=== PATIENT | female | born 1955 | race Caucasian/White ===

== ENCOUNTER → 2016-10-06 | Outpatient (CLI) | payer BC | LOC: BMCIMAGING 10:25 | PROVIDERS: ATTEND Orthopaedic Surgery | DX: M25.551 Pain in right hip (principal); M25.512 Pain in left shoulder ==

== ENCOUNTER → 2016-11-10 | Outpatient (CLI) | payer BC | LOC: BMCIMAGING 08:35 | PROVIDERS: ATTEND Orthopaedic Surgery | DX: M25.551 Pain in right hip (principal) ==

== ENCOUNTER → 2017-01-18 | Outpatient (CLI) | payer BC | LOC: FIMAGING 16:08 | PROVIDERS: ATTEND Orthopaedic Surgery | DX: Z01.818 Encounter for other preprocedural examination (principal); M16.11 Unilateral primary osteoarthritis, right hip; M25.451 Effusion, right hip; M51.36 Other intervertebral disc degeneration, lumbar region; M47.816 Spondylosis without myelopathy or radiculopathy, lumbar region; M76.21 Iliac crest spur, right hip ==

== ENCOUNTER 2017-01-23 09:24 | Inpatient (IN) | payer BC ==
--- NOTE | 2017-01-23 06:42 | PDHPUP ---
History & Physical Update H&P update statement: This history and physical update is based on an assessment of the patient which was completed after admission or registration (within 24 hours), but prior to the surgery/procedure.
--- NOTE | 2017-01-23 06:42 | PDIAF ---
- Diagnosis Diagnosis: right hip djd Code Status: Full Code - Medication Management Discharge Medications: Medications to Continue on Transfer Calcium Carb W/Vit D [Calcium Carb W/Vit D 500/200 (*)] 0.5 tab PO DAILY [Last Taken Unknown] Estradiol/Testosterone Pellets 0 mg IPL Q90D 12/15/16 [Last Taken Unknown] Herbals/Supplements -Info Only 1 ea PO DAILY 12/15/16 [Last Taken Unknown] Multivitamins [Multivitamin (*)] 1 tab PO DAILY 12/15/16 [Last Taken Unknown] Naproxen Sodium [Aleve 220 MG (*)] 220 mg PO DAILY PRN 12/15/16 [Last Taken Unknown] Nature Thyroid 48.75 mg PO DAILY 12/15/16 [Last Taken Unknown] Progesterone, Micronized [Progesterone] 100 mg PO DAILY 12/15/16 [Last Taken Unknown] Spironolactone [Aldactone 50 MG (RX)] 50 mg PO DAILY 12/15/16 [Last Taken Unknown] Discharge Medications: Refer to the Discharge Home Medication list for PRN reason. - Orders Services needed: Physical Therapy Diet Recommendation: no restrictions on diet Diet Texture: Regular Texture Diet Activity/Weight Bearing Restrictions: daily dressing changes. no soaking. may shower without bandage. wbat. anterior hip precautions. f/u at two weeks. seek attn for increasing pain, leg pain, drainage, s/s infection - Follow Up Care Current Providers and Referrals: Doctor Not,On Staff, MD [Primary Care Provider] -
[~2017-01-23 09:24] MED LIST: NS IV ONE; ROPIVACAINE 0.2% 80 MG, EPINEPHrine 0.2 MG, KETOROLAC TROMETHAMINE 30 MG, morphINE 10 M... IU ONE; TRANEXAMIC ACID IV ONE
[2017-01-23] MEDS ORDERED: ACETAMINOPHEN 325 MG TAB PO ONE (09:41)
[2017-01-23] MEDS ORDERED: ceFAZolin 2 GM/DEXTROSE 100 ML IV ONE (09:41)
[2017-01-23] MEDS ORDERED: FAMOTIDINE 20 MG TAB PO ONE (09:41)
[2017-01-23] MEDS ORDERED: LIDOCAINE 1% 2 ML INJ ID PRN (09:55)
[2017-01-23] MEDS ORDERED: LR 1,000 ML IV ONE (09:55)
[2017-01-23] MEDS ORDERED: FAMOTIDINE 20 MG TAB ONE (10:02)
[2017-01-23] MEDS ORDERED: NALOXONE HCL 0.4 MG/ML INJ IVP PRN (11:12)
--- NOTE | 2017-01-23 11:22 | PDANEPAE ---
ANE History of Present Illness Right total hip arthroplasty ANE Past Medical History - Cardiovascular History Hx Hypertension: No Hx Arrhythmias: Yes Hx Chest Pain: No Hx Coronary Artery / Peripheral Vascular Disease: No Hx CHF / Valvular Disease: No Hx Palpitations: No Cardiovascular History Comment: "resp arrhythmia since i was a child". NO problems. - Pulmonary History Hx COPD: No Hx Asthma/Reactive Airway Disease: No Hx Recent Upper Respiratory Infection: No Hx Oxygen in Use at Home: No Hx Sleep Apnea: No Sleep Apnea Screening Result - Last Documented: Negative Pulmonary History Comment: quit smoking 2005-20pk yr history. - Neurologic History Hx Cerebrovascular Accident: No Hx Seizures: No Hx Dementia: No - Endocrine History Hx Diabetes: No - Renal History Hx Renal Disorders: No - Liver History Hx Hepatic Disorders: No - Neurological & Psychiatric Hx Hx Neurological and Psychiatric Disorders: Yes Neurological / Psychiatric History Comment: inflamed R sciatic nerve- chiropractor tx for above. - Cancer History Hx Cancer: No - Congenital Disorder History Hx Congenital Disorders: No - GI History Hx Gastrointestinal Disorders: No - Other Health History Other Health History: OA R hip pain;. on HRT;. using spironolactone to block side affects of testosterone (acne,etc). Pt will stop this Rx weeks prior to sx. - Chronic Pain History Chronic Pain: Yes (R hip) ANE Review of Systems Review of Systems: - Exercise capacity METS (RN): 4 METS ANE Patient History - Allergies Allergies/Adverse Reactions: No Known Allergies Allergy (Verified 12/21/16 12:50) - Home Medications Home Medications: Calcium Carb W/Vit D [Calcium Carb W/Vit D 500/200 (*)] 0.5 tab PO DAILY [Last Taken 01/18/17] Estradiol/Testosterone Pellets 0 mg IPL Q90D 12/15/16 [Last Taken 3 Months Ago ~ 10/23/16] Herbals/Supplements -Info Only 1 ea PO DAILY 12/15/16 [Last Taken 01/18/17] Multivitamins [Multivitamin (*)] 1 tab PO DAILY 12/15/16 [Last Taken 01/18/17] Naproxen Sodium [Aleve 220 MG (*)] 220 mg PO DAILY PRN 12/15/16 [Last Taken 08/01] Nature Thyroid 48.75 mg PO DAILY 12/15/16 [Last Taken 01/23/17 05:00] Progesterone, Micronized [Progesterone] 100 mg PO DAILY 12/15/16 [Last Taken 08/01] Spironolactone [Aldactone 50 MG (RX)] 50 mg PO DAILY 12/15/16 [Last Taken ] - NPO status NPO Since - Liquids (Date): 01/22/17 NPO Since - Liquids (Time): 20:00 NPO Since - Solids (Date): 01/22/17 NPO Since - Solids (Time): 20:00 - Smoking Hx Smoking Status: Former smoker ANE Labs/Vital Signs - Vital Signs Blood Pressure: 132/66 Heart Rate: 79 Respiratory Rate: 14 O2 Sat (%): 98 Height: 154.94 cm Weight: 66.678 kg
--- NOTE | 2017-01-23 11:34 | PDANEPAE ---
ANE History of Present Illness Right total hip arthroplasty ANE Past Medical History - Cardiovascular History Hx Hypertension: No Hx Arrhythmias: Yes Hx Chest Pain: No Hx Coronary Artery / Peripheral Vascular Disease: No Hx CHF / Valvular Disease: No Hx Palpitations: No Cardiovascular History Comment: "resp arrhythmia since i was a child". NO problems. - Pulmonary History Hx COPD: No Hx Asthma/Reactive Airway Disease: No Hx Recent Upper Respiratory Infection: No Hx Oxygen in Use at Home: No Hx Sleep Apnea: No Sleep Apnea Screening Result - Last Documented: Negative Pulmonary History Comment: quit smoking 2005-20pk yr history. - Neurologic History Hx Cerebrovascular Accident: No Hx Seizures: No Hx Dementia: No - Endocrine History Hx Diabetes: No Hypothyroid: Yes - Renal History Hx Renal Disorders: No - Liver History Hx Hepatic Disorders: No - Neurological & Psychiatric Hx Hx Neurological and Psychiatric Disorders: Yes Neurological / Psychiatric History Comment: inflamed R sciatic nerve- chiropractor tx for above. - Cancer History Hx Cancer: No - Congenital Disorder History Hx Congenital Disorders: No - GI History GERD: no Hx Gastrointestinal Disorders: No - Other Health History Other Health History: OA R hip pain;. on HRT;. using spironolactone to block side affects of testosterone (acne,etc). Pt will stop this Rx weeks prior to sx. - Chronic Pain History Chronic Pain: Yes (R hip) ANE Review of Systems Review of Systems: - Exercise capacity METS (RN): 4 METS ANE Patient History - Allergies Allergies/Adverse Reactions: No Known Allergies Allergy (Verified 12/21/16 12:50) - Home Medications Home Medications: Calcium Carb W/Vit D [Calcium Carb W/Vit D 500/200 (*)] 0.5 tab PO DAILY [Last Taken 01/18/17] Estradiol/Testosterone Pellets 0 mg IPL Q90D 12/15/16 [Last Taken 3 Months Ago ~ 10/23/16] Herbals/Supplements -Info Only 1 ea PO DAILY 12/15/16 [Last Taken 01/18/17] Multivitamins [Multivitamin (*)] 1 tab PO DAILY 12/15/16 [Last Taken 01/18/17] Naproxen Sodium [Aleve 220 MG (*)] 220 mg PO DAILY PRN 12/15/16 [Last Taken 08/01] Nature Thyroid 48.75 mg PO DAILY 12/15/16 [Last Taken 01/23/17 05:00] Progesterone, Micronized [Progesterone] 100 mg PO DAILY 12/15/16 [Last Taken 08/01] Spironolactone [Aldactone 50 MG (RX)] 50 mg PO DAILY 12/15/16 [Last Taken ] - NPO status NPO Since - Liquids (Date): 01/22/17 NPO Since - Liquids (Time): 20:00 NPO Since - Solids (Date): 01/22/17 NPO Since - Solids (Time): 20:00 - Smoking Hx Smoking Status: Former smoker ANE Labs/Vital Signs - Vital Signs Blood Pressure: 132/66 Heart Rate: 79 Respiratory Rate: 14 O2 Sat (%): 98 Height: 154.94 cm Weight: 66.678 kg ANE Physical Exam - Airway Neck exam: FROM Mallampati Score: Class 1 Mouth exam: normal dental/mouth exam - Pulmonary Pulmonary: clear to auscultation - Cardiovascular Cardiovascular: regular rate and rhythym - ASA Status ASA Status: II ANE Anesthesia Plan Anesthesia Plan: general endotracheal anesthesia, GA w LMA
[2017-01-23] MEDS ORDERED: MIDAZOLAM 2 MG/2 ML VIAL IVP ONE (11:35)
[2017-01-23] MEDS ORDERED: fentaNYL 100 MCG/2 ML INJ ONE ×5 (11:38→15:22)
[2017-01-23] MEDS ORDERED: PROPOFOL 200 MG/20 ML VIAL ONE (11:38)
[2017-01-23] MEDS ORDERED: DEXAMETHASONE 4 MG/ML VIAL ONE (11:40)
[2017-01-23] MEDS ORDERED: ONDANSETRON 4 MG/2 ML VIAL ONE (11:40)
[2017-01-23] MEDS ORDERED: CALCIUM CHLORIDE 1 GM/10 ML INJ ONE (11:53)
[2017-01-23] MEDS ORDERED: THROMBIN (BOVINE) 5,000 UNIT VIAL TP ONE ×2 (11:53→13:43)
[2017-01-23] MEDS ORDERED: ceFAZolin 1 GM/5 ML SYR ONE (11:54)
[2017-01-23] MEDS ORDERED: PHENYLEPHRINE HCL 100 MCG/ML SYR ONE (13:01)
[2017-01-23] MEDS ORDERED: DIPHENOXYLATE/ATROPINE LOMOTIL 1 TAB PO PRN (14:35)
[2017-01-23] MEDS ORDERED: BISACODYL 10 MG SUPP PR PRN (14:35)
[2017-01-23] MEDS ORDERED: PROMETHAZINE HCL 25 MG SUPPR PR PRN (14:35)
[2017-01-23] MEDS ORDERED: TEMAZEPAM 15 MG CAP PO PRN (14:35)
[2017-01-23] MEDS ORDERED: LACTULOSE 20 GM/30 ML UDCUP PO PRN (14:35)
[2017-01-23] MEDS ORDERED: ONDANSETRON DISINTEGRATING 4 MG TAB PO PRN (14:35)
[2017-01-23] MEDS ORDERED: PROMETHAZINE HCL 25 MG/ML INJ IVP PRN (14:35)
[2017-01-23] MEDS ORDERED: ONDANSETRON 4 MG/2 ML VIAL IVP PRN (14:35)
[2017-01-23] MEDS ORDERED: METOCLOPRAMIDE 10 MG/2 ML VIAL IVP PRN (14:35)
[2017-01-23] MEDS ORDERED: POLYETHYLENE GLYCOL 3350 17 GM PKT PO PRN (14:35)
[2017-01-23] MEDS ORDERED: traMADol 50 MG TAB PO PRN (14:35)
[2017-01-23] MEDS ORDERED: MAGNESIUM HYDROXIDE 30 ML UDCUP PO PRN (14:35)
[2017-01-23] MEDS ORDERED: diphenhydrAMINE 25 MG CAP PO PRN (14:35)
[2017-01-23] MEDS ORDERED: DIAZEPAM 5 MG TAB PO PRN (14:35)
[2017-01-23] MEDS: fentaNYL 100 MCG/2 ML INJ IVP PRN ×3 (14:55→15:26)
[2017-01-23] MEDS ORDERED: LR 1,000 ML IV SCH (15:00)
--- NOTE | 2017-01-23 15:16 | POSTANESTH ---
Post Anesthetic Evaluation Cardiovascular Status: Normal, Stable Respiratory Status: Normal, Stable Level of Consciousness/Mental Status: Can Participate in Eval Pain Control: Adequate, Prn Tx Ordered Nausea/Vomiting Control: Adequate, Prn Tx Ordered Complications Possibly Related to Anesthesia: None Noted
[2017-01-23] MEDS ORDERED: oxyCODONE IR 5 MG TAB ONE ×2 (15:23→17:02)
[2017-01-23] MEDS ORDERED: traMADol 50 MG TAB ONE (15:23)
[2017-01-23] MEDS: oxyCODONE IR 5 MG TAB PO PRN ×3 (15:29→21:45)
[2017-01-23] MEDS ORDERED: ceFAZolin 2 GM/DEXTROSE 100 ML IV SCH (18:00)
[2017-01-23] MEDS: SENNOSIDES/DOCUSATE SODIUM TAB PO SCH (21:45)
[2017-01-23] MEDS: FAMOTIDINE 20 MG TAB PO SCH (21:45)
[2017-01-23] MEDS: ASPIRIN 325 MG TAB PO SCH (21:45)
[2017-01-23] MEDS: ceFAZolin 2 GM/DEXTROSE 100 ML IV SCH (22:00)
[2017-01-23] MEDS: ACETAMINOPHEN 325 MG TAB PO SCH ×2 (23:16→23:32)
[2017-01-23] MEDS: TRANEXAMIC ACID 650 MG TAB PO SCH ×2 (23:25→23:32)
[2017-01-24 04:45] LABS: HEMOGLOBIN 11.1 g/dL (12.6-16.3)
[2017-01-24] MEDS: TRANEXAMIC ACID 650 MG TAB PO SCH (06:14)
[2017-01-24] MEDS: ACETAMINOPHEN 325 MG TAB PO SCH ×2 (06:16→11:50)
[2017-01-24] MEDS: ceFAZolin 2 GM/DEXTROSE 100 ML IV SCH (06:16)
--- NOTE | 2017-01-24 07:29 | PDIAF ---
- Diagnosis Diagnosis: right hip djd Code Status: Full Code - Medication Management Discharge Medications: Medications to Continue on Transfer Calcium Carb W/Vit D [Calcium Carb W/Vit D 500/200 (*)] 0.5 tab PO DAILY [Last Taken 01/18/17] Estradiol/Testosterone Pellets 0 mg IPL Q90D 12/15/16 [Last Taken 3 Months Ago ~ 10/23/16] Herbals/Supplements -Info Only 1 ea PO DAILY 12/15/16 [Last Taken 01/18/17] Multivitamins [Multivitamin (*)] 1 tab PO DAILY 12/15/16 [Last Taken 01/18/17] Naproxen Sodium [Aleve 220 MG (*)] 220 mg PO DAILY PRN 12/15/16 [Last Taken 08/01] Nature Thyroid 48.75 mg PO DAILY 12/15/16 [Last Taken 01/23/17 05:00] Progesterone, Micronized [Progesterone] 100 mg PO DAILY 12/15/16 [Last Taken 08/01] Spironolactone [Aldactone] 50 mg PO DAILY 12/15/16 [Last Taken 01/18/17] Aspirin [Aspirin 325 mg (*)] 325 mg PO DAILY tab 01/24/17 [Last Taken Unknown] oxyCODONE IR [Oxycodone Ir (*)] 5 - 10 mg PO Q3HRS PRN #90 tab 01/24/17 [Last Taken Unknown] Discharge Medications: Refer to the Discharge Home Medication list for PRN reason. - Orders Services needed: Physical Therapy Diet Recommendation: no restrictions on diet Diet Texture: Regular Texture Diet Activity/Weight Bearing Restrictions: daily dressing changes. no soaking. may shower without bandage. wbat. anterior hip precautions. f/u at two weeks. seek attn for increasing pain, leg pain, drainage, s/s infection - Follow Up Care Current Providers and Referrals: Doctor Not,On Staff, MD [Primary Care Provider] -
--- NOTE | 2017-01-24 07:41 | GDS ---
[f rep st] DISCHARGE SUMMARY ADMIT DIAGNOSIS: Right hip degenerative joint disease. DISCHARGE DIAGNOSIS: Right hip degenerative joint disease. PROCEDURE: Right total hip arthroplasty-MAKOplasty. OPERATIVE INDICATIONS: The patient is a 61-year-old woman with end-stage arthritis to her right hip. She has failed all attempts at conservative management. I have recommended surgical intervention w ith total hip replacement. She understood the risks, benefits, alternatives, and wished to proceed. Written consent was signed and placed in patient's chart. HOSPITAL COURSE: The patient was admitted to hospital floor after uncomplicated total hip arthroplas ty. She tolerated the procedure well. She had no postoperative complications. At the time of disch arge, she is tolerating an oral diet. Pain was well controlled on oral medicines. She is voiding an d stooling without difficulty. Her dressing is clean, dry, and intact. She has negative Ryan's gerda aterally. X-rays are stable with no fracture, lucency and concentric reduction. DISCHARGE ACTIVITY: She is weightbearing as tolerated. Anterior hip precautions. Daily dressing ch anges. No soaking or immersion. May shower without the bandage. FOLLOWUP: Two weeks for repeat clinical evaluation. Seek attention for increasing redness, swelling , drainage, discharge, or other focal complaints. DISCHARGE MEDICATIONS: Aspirin 325 mg p.o. daily for 6 weeks, oxycodone 5 mg 1-2 every 6 hours p.r.n . pain. Copy requested to: Primary care physician /[id number]/MODL
[2017-01-24 07:46] VITALS: BP 106/51; PULSE 81; RESP 16; TEMP 98.1; O2SAT 100
[2017-01-24] MEDS: SENNOSIDES/DOCUSATE SODIUM TAB PO SCH (08:39)
[2017-01-24] MEDS: ASPIRIN 325 MG TAB PO SCH (08:39)
[2017-01-24] MEDS: FAMOTIDINE 20 MG TAB PO SCH (08:40)
[2017-01-24] MEDS: oxyCODONE IR 5 MG TAB PO PRN ×2 (08:46→11:50)
[2017-01-24] MEDS ORDERED: PROGESTERONE,MICR 100 MG CAP PO SCH (09:00)
[2017-01-24] MEDS ORDERED: NATURE THYROID PO SCH (09:00)
[2017-01-24] MEDS ORDERED: SPIRONOLACTONE 50 MG TAB PO SCH (09:00)
--- NOTE | 2017-01-24 10:08 | ASMTCMCOM ---
CM Note CM Note Notes: CM Discharge Note: Patient is s/p total R hip arthroplasty with Dr Peguero. PT/OT have cleared her for home - she plans to stay with her sister in [place] for 2 weeks before returning to [place] where she will begin outpatient PT. No other needs identified. Date Signed: 01/24/2017 10:08 AM Electronically Signed By:Lo Tapia RN
--- NOTE | 2017-01-24 14:05 | ASDISCHSUM ---
Discharge Information Plan Status:Home with No Needs Medically Cleared to Leave: Discharge Date:01/24/2017 12:46 PM CM D/C Disposition: ADT D/C Disposition:Home Health Service Projected Discharge Date:01/24/2017 12:46 PM Transportation at D/C: Discharge Delay Reason: Follow-Up Date:01/24/2017 12:46 PM Discharge Slot: Final Diagnosis: Placement Information Patient Contact Information Contact Name:FLETCHER Relationship: Address:[address] [place] [address] Work Phone: City:[place] Alternate Phone: State/Zip Code:[place] [address] Email: Financial Information Financial Class:HMO and PPO Plans Primary Plan Desc: OUT OF STATE PPO Primary Plan Number:[id number] Secondary Plan Desc: Secondary Plan Number: Assessment Information [facility] CM Progress Note CM Note CM Note Notes: CM Discharge Note: Patient is s/p total R hip arthroplasty with Dr Peguero. PT/OT have cleared her for home - she plans to stay with her sister in [place] for 2 weeks before returning to [place] where she will begin outpatient PT. No other needs identified. Date Signed: 01/24/2017 10:08 AM Electronically Signed By:Lo Tapia RN Intervention Information
== END 2017-01-24 12:46 | disposition home health service (06) | DRG 470 ==
LOC: F3N 09:24
PROVIDERS: ADMIT Orthopaedic Surgery; ATTEND Orthopaedic Surgery
PROC: 0SR904Z Replacement of Right Hip Joint with Ceramic on Polyethylene Synthetic Substitute, Open Approach (ICD-10-PCS; principal; 2017-01-23 10:45)
DX: M16.11 Unilateral primary osteoarthritis, right hip (principal); E03.9 Hypothyroidism, unspecified; E78.2 Mixed hyperlipidemia
CPT/HCPCS: 97161-GP; 97165-GO; C1713; J0171; J0690; J1100; J1885; J2250; J2370; J2405; J2704; J2795; J3010